=== PATIENT | female | born 1980 | race Caucasian/White ===

== ENCOUNTER 2017-06-01 09:04 | Outpatient (CLI) | payer OTHER ==
--- NOTE | 2017-06-01 12:53 | RAD ---
SMALL BOWEL FOLLOW-THROUGH: CLINICAL HISTORY: Abnormal transaminases. Nausea and vomiting. Reflux. History of endometriosis with prior bowel res ections reported by the patient. FINDINGS: Director Medical imaging reveals a nonobstructive bowel gas pattern. Real-time fluoroscopy performed of the sma ll bowel, which reveals appropriate caliber and mucosal pattern. There is transit of contrast through the small bowel and into the colon by 15 minutes. IMPRESSION: 1. Rapid transit of contrast through the small intestine. Correlate clinically. 2. Normal mucosal pattern and caliber of small bowel, as demonstrated fluoroscopically. POS: [facility]
== END 2017-06-01 09:05 | disposition home or self-care (01) ==
LOC: RAD 09:04
PROVIDERS: ATTEND Internal Medicine Gastroenterology
DX: K21.9 Gastro-esophageal reflux disease without esophagitis (principal); R74.0 Nonspecific elevation of levels of transaminase and lactic acid dehydrogenase [LDH]; R11.2 Nausea with vomiting, unspecified
CPT/HCPCS: 74250

== ENCOUNTER 2017-06-12 17:30 | Emergency (ER) | payer OTHER ==
[2017-06-12] MEDS ORDERED: Ondansetron ODT 4 MG TAB ONE (17:41)
[2017-06-12] MEDS ORDERED: Lorazepam 2 MG/ML VIAL ONE (17:47)
[2017-06-12 17:58] LABS: #Basophils 0.1 thou/uL (0.0-0.2); #Lymphocytes 3.1 thou/uL (1.20-3.40); #Monocytes 0.8 thou/uL (0.11-0.59); #Neutrophils 3.8 thou/uL (1.40-6.50); %Basophils 1.1 % (0.0-1.0); %Eosinophils 0.2 % (0.0-10.0); %Lymphocytes 39.3 % (21.0-51.0); %Monocytes 10.2 % (0.0-10.0); Hematocrit 44.7 % (36.0-47.0); Mean Platelet Volume 6.2 fL (7.4-10.4); Red Blood Cell (RBC) Count 5.22 mill/uL (4.20-5.40); White Blood Cell (WBC) Count 7.8 thou/uL (4.8-10.8)
[2017-06-12] MEDS ORDERED: diphenhydrAMINE 50 MG/ML VIAL ONE ×2 (18:05→20:16)
[2017-06-12] MEDS ORDERED: Promethazine HCl 25 MG/ML VIAL ONE ×2 (18:05→20:16)
[2017-06-12 18:25] LABS: ALT (SGPT) 33 U/L (8-55); AST (SGOT) 33 U/L (5-34); Alkaline Phosphatase 127 U/L (40-150); Anion Gap 22 mmol/L (10-20); BUN (Urea Nitrogen) 12 mg/dL (7.0-18.7); Bilirubin, Total 0.3 mg/dL (0.2-1.2); Calc. Creatinine Clearance 0 mL/min (70-130); Calcium 9.2 mg/dL (7.8-10.44); Carbon Dioxide 16 mmol/L (22-29); Chloride 102 mmol/L (98-107); Estimated GFR-MDRD 72; Globulin 3.9 g/dL (2.4-3.5); Protein, Total 8.5 g/dL (6.0-8.3)
[2017-06-12] MEDS ORDERED: Potassium Chloride 20 MEQ in Sodium Chloride 0.9% 250 ML 250 ML IVPB SCH (19:00)
--- NOTE | 2017-06-12 19:10 | CT ---
CT BRAIN WITHOUT CONTRAST: History: Headache. Comparison: None. FINDINGS: No acute territory infarct or hemorrhage. No midline shift or mass effect. Ventricular size and extra axial CSF spaces are normal. The paranasal sinuses and mastoids are clear. Calvarium is intact. IMPRESSION: No acute intracranial abnormality. POS: [facility]
[2017-06-12] MEDS ORDERED: Potassium Bicarbonate/Cit Ac 25 MEQ TAB ONE (19:21)
== END 2017-06-12 22:50 | disposition home or self-care (01) ==
LOC: ERS 17:30
DX: B34.9 Viral infection, unspecified (principal); R06.4 Hyperventilation; F41.9 Anxiety disorder, unspecified
CPT/HCPCS: 70450; 80053; 85025; 85652; 86140; 96361; 96365; 96366; 96375; 96376; J1200; J2060; J2550; J3480; J7050; Q0162

== ENCOUNTER 2018-01-16 15:29 | Inpatient (IN) | payer OTHER ==
[2018-01-16] MEDS ORDERED: Midazolam HCl 5 mg/ml Vial ONE (15:35)
[2018-01-16] MEDS ORDERED: Fentanyl 100 MCG/2 ML VIAL ONE (16:16)
[2018-01-16 16:20] LABS: Base Excess (BEa) -22.5 mEq/L (-2.0 to +3.0); CO2 Tension 48.8 mmHg (35.0-45.0); Hematocrit-ABG 51.6 % (36.0-47.0); Hemoglobin (Hb) 15.2 g/dL (12.0-16.0); O2 Tension (PaO2) 111.3 mmHg (80.0-100.0); pH, Arterial 6.93 (7.35-7.45)
[2018-01-16 16:21] LABS: Analyzer IN Cardio ER; Calcium, Ionized 2.5 mmol/L (1.12-1.30); Puncture Site LF
[2018-01-16] MEDS ORDERED: fentaNYL Citrate/PF 2,000 MCG in Sodium Chloride 0.9% 60 ML IV SCH ×2 (16:24→20:45)
[2018-01-16] MEDS ORDERED: Norepinephrine 8 MG/0.9% NS 250 ML ONE (16:28)
[2018-01-16 16:31] LABS: Hemoglobin 16.2 g/dL (12.0-16.0); Mean Corpuscular HGB CONC 32.7 g/dL (32.0-36.0); Mean Corpuscular Hemoglobin 28.2 pg (27.0-31.0); Mean Corpuscular Volume 86.4 fL (78.0-98.0); Mean Platelet Volume 6.8 fL (7.4-10.4); Platelet Count 411 thou/uL (130-400); RBC Distribution Width 13.1 % (11.5-14.5); Red Blood Cell (RBC) Count 5.74 mill/uL (4.20-5.40); White Blood Cell (WBC) Count 13.5 thou/uL (4.8-10.8)
[2018-01-16 16:43] LABS: Acetaminophen Less than 6.0 mcg/mL (10.0-30.0); Alcohol Less than 10 mg/dL (Less than 10); Salicylate Less than 8.0 mg/dL (15.0-30.0)
[2018-01-16 16:44] LABS: ALT (SGPT) 511 U/L (8-55); AST (SGOT) 587 U/L (5-34); Albumin 3.5 g/dL (3.5-5.0); Alkaline Phosphatase 246 U/L (40-150); BUN (Urea Nitrogen) 29 mg/dL (7.0-18.7); CK (CPK) 152 U/L (29-168); Calc. Creatinine Clearance 0 mL/min (70-130); Chloride 101 mmol/L (98-107); Estimated GFR-MDRD 27; Globulin 3.3 g/dL (2.4-3.5); Glucose 364 mg/dL (70-105); Lipase 170 U/L (8-78); Potassium 3.5 mmol/L (3.5-5.1); Protein, Total 6.8 g/dL (6.0-8.3); Sodium 140 mmol/L (136-145)
[2018-01-16 16:47] LABS: Band 15 % (5-11); Large Platelets SLIGHT; Lymphocytes 34 % (21-51); MDiff Complete? YES; Metamyelocyte 11 % (0-0); Monocytes 2 % (0-10); Myelocyte 4 % (0-0); Neutrophil 33 % (42-75); Nucleated RBC 2 % (0); PLT Morphology Comment Appears Increased; Polychromasia SLIGHT = 2-3 cells (100X) (0-2/hpf); Reactive Lymphocytes 1 % (0-10); Vacuoles SLIGHT
[2018-01-16 16:48] LABS: Carbon Dioxide Less than 8 mmol/L (22-29)
--- NOTE | 2018-01-16 17:01 | RAD ---
CHEST 1 VIEW: Date: 01/16/18 HISTORY: Cardiac arrest. COMPARISON: Chest radiograph from 2016. FINDINGS: Patient is intubated with endotracheal tube tip at the level of the clavicles. Enteric tube tip is in the gastric body. Low grade perihilar edema. Possible right-sided rib fractures. IMPRESSION: 1. Endotracheal tube tip at the level of the clavicles. 2. Enteric tube tip at the gastric body. 3. Mild perihilar edema. 4. Possible right-sided rib fractures. POS: [facility]
--- NOTE | 2018-01-16 17:41 | CT ---
CT BRAIN WITHOUT CONTRAST: Date: 01/16/18 HISTORY: Syncope. FINDINGS: Comparison made with exam of 06/12/17. No evidence of acute infarct, hemorrhage, midline shift, or abnormal extra-axial fluid collections ar e seen. The ventricular size is normal and the basilar cisterns are patent. The bony calvarium is int act. A tiny amount of fluid is seen in the maxillary and sphenoid sinuses. IMPRESSION: No CT evidence of acute intracranial process. POS: [facility]
[2018-01-16 18:08] LABS: pH, Arterial 6.97 (7.35-7.45)
[2018-01-16 18:09] LABS: CO2 Tension 53.9 mmHg (35.0-45.0); Hematocrit-ABG 45.3 % (36.0-47.0); O2 Tension (PaO2) 52.6 mmHg (80.0-100.0)
[2018-01-16 18:10] LABS: Hemoglobin (Hb) 14.7 g/dL (12.0-16.0)
[2018-01-16 18:11] LABS: Analyzer IN Cardio ER; Calcium, Ionized 1.2 mmol/L (1.12-1.30); Puncture Site RB
[2018-01-16 18:12] LABS: ALV-art Gradient 593.025 (0-20)
[2018-01-16] MEDS ORDERED: Vasopressin 40 UNIT, Admixture Fee 1 EACH in Sodium Chloride 0.9% 100 ML IV SCH (18:15)
[2018-01-16] MEDS ORDERED: Dexamethasone 10 MG/ML VIAL ONE (18:19)
[2018-01-16 18:37] LABS: Troponin I 0.157 ng/mL (< 0.028)
[2018-01-16 18:43] LABS: CKMB 7.5 ng/mL (0-6.6)
--- NOTE | 2018-01-16 18:48 | CT ---
CTA CHEST WITH IV CONTRAST AND 3D POSTPROCESSING CTA ABDOMEN AND PELVIS WITH IV CONTRAST AND 3D POSTPROCESSIN01/16/18 HISTORY: Syncope. FINDINGS: There is good contrast opacification of the thoracoabdominal aorta without aneurysmal dissection. The pulmonary artery vasculature is well opacified without filling defects to suggest pulmonary embolism . No pleural or pericardial effusions are seen. There are extensive areas of consolidation in the stephanie g ramirez bilaterally. There is a right sided moderate pneumothorax with multiple right rib fractures from the first through the sixth right ribs. No free air or free fluid is seen in the abdomen or pelvis. The liver, spleen, pancreas, adrenal glan ds and kidneys are unremarkable. There is a right groin catheter with tip in the intrahepatic IVC. En dotracheal and nasogastric tubes are present. There is good flow without significant stenosis in the renal arteries, celiac axis, SMA and PHILOMENA. Ther e is fluid in the loops of bowel. There is mild dilatation of some of the small bowel loops in the le ft upper quadrant. There is a Mann catheter in a nondistended urinary bladder. IMPRESSION: 1. Moderate right sided pneumothorax with multiple right rib fractures. 2. Extensive bilateral lung infiltrates. 3. Mildly dilated small bowel loops in the left upper quadrant. Discussed over the telephone with ER physician, Dr. Giovanni Linda at 5:41 p.m. POS: [facility]
[2018-01-16] MEDS ORDERED: Calcium Gluc 4.6 MEQ/10 ML (100 MG/ML) ONE (19:20)
[2018-01-16] MEDS ORDERED: Calcium Chloride 1 GM/10 ML Abboject SYRINGE ONE (19:27)
[2018-01-16 19:34] LABS: CO2 Tension 62.3 mmHg (35.0-45.0); pH, Arterial 6.79 (7.35-7.45)
[2018-01-16 19:35] LABS: Actual Bicarbonate (HCO3a) 9.2 mEq/L (22-28); Base Excess (BEa) -25.9 mEq/L (-2.0 to +3.0); Hemoglobin (Hb) 12.9 g/dL (12.0-16.0); O2 Tension (PaO2) 58.5 mmHg (80.0-100.0)
[2018-01-16 19:36] LABS: Analyzer IN Cardio ER; Calcium, Ionized 3.8 mmol/L (1.12-1.30); Puncture Site A LINE
[2018-01-16 19:37] LABS: ALV-art Gradient 576.625 (0-20)
[2018-01-16] MEDS ORDERED: Albumin 25% 25 GM/100 ML BOT IVPB ONE (19:45)
[2018-01-16] MEDS ORDERED: Ampicillin/Sulbactam 3 GM in Sodium Chloride 0.9% 100 ML IVPB SCH (20:30)
[2018-01-16] MEDS ORDERED: Norepinephrine 8 MG/250 ML BAG IVPB PRN (20:35)
--- NOTE | 2018-01-16 20:40 | RAD ---
PORTABLE CHEST ONE VIEW: 01/16/18 at 7:21 p.m. HISTORY: Respiratory failure. FINDINGS/IMPRESSION: Comparison is made with earlier exam of 3:26 p.m. from the same date. Endotracheal and nasogastric tubes remain in place. Extensive air space opacities have developed bila terally. Interval placement of bilateral chest tubes are seen. Multiple right sided rib fractures are again noted. There is subcutaneous emphysema in the right lateral chest wall. POS: [facility]
[2018-01-16] MEDS ORDERED: Dextrose 5% in Water 1,000 ML IV PRN (20:44)
[2018-01-16] MEDS ORDERED: Dextrose 50% Abboject 50 ML SYRINGE SLOW IVP PRN (20:44)
[2018-01-16] MEDS ORDERED: Norepinephrine 8 MG/0.9% NS 250 ML IVPB PRN (20:44)
[2018-01-16] MEDS ORDERED: Sodium Chloride 0.9% 1,000 ML IV SCH (20:44)
[2018-01-16] MEDS ORDERED: DISCONTINUE PREVIOUS NARCOTIC PAIN MEDICATIONS AND BENZODIAZEPINES FS SCH (20:45)
[2018-01-16] MEDS ORDERED: Lactated Ringer's 1,000 ML IV SCH (20:45)
[2018-01-16] MEDS ORDERED: Propofol BOLUS 1,000 MG/100 ML VIAL IV PRN (20:45)
[2018-01-16] MEDS ORDERED: Fentanyl BOLUS 250 ML IVPB PRN (20:45)
[2018-01-16] MEDS ORDERED: Propofol 1,000 MG/100 ML VIAL IV PRN (20:45)
[2018-01-16] MEDS ORDERED: Lorazepam 2 MG/ML VIAL SLOW IVP PRN (20:45)
[2018-01-16] MEDS ORDERED: Sodium Bicarb 50 MEQ/50 ML Abboject 8.4% SYRINGE ONE ×2 (20:50→20:52)
[2018-01-16] MEDS ORDERED: Sodium Bicarbonate 150 MEQ in Dextrose 5% in Water 1,000 ML IV SCH (21:00)
[2018-01-16] MEDS ORDERED: Famotidine/PF 20 mg/2ml Vial SLOW IVP SCH (21:00)
[2018-01-16] MEDS ORDERED: Dextrose 50% Abboject 50 ML SYRINGE ONE (21:14)
[2018-01-16 21:17] LABS: CO2 Tension 50.4 mmHg (35.0-45.0); O2 Tension (PaO2) 45.1 mmHg (80.0-100.0); pH, Arterial 6.99 (7.35-7.45)
[2018-01-16 21:18] LABS: Hemoglobin (Hb) 11.9 g/dL (12.0-16.0)
[2018-01-16 21:19] LABS: Calcium, Ionized 1.2 mmol/L (1.12-1.30); Puncture Site LINE
[2018-01-16 21:25] VITALS: BMI 29.9
[2018-01-16 21:36] VITALS: TEMP 97.7
[2018-01-16 22:30] LABS: Actual Bicarbonate (HCO3a) 13.6 mEq/L (22-28); CO2 Tension 56.4 mmHg (35.0-45.0); O2 Tension (PaO2) 47.7 mmHg (80.0-100.0)
[2018-01-16 22:31] LABS: Base Excess (BEa) -17.5 mEq/L (-2.0 to +3.0); Hemoglobin (Hb) 11.3 g/dL (12.0-16.0)
[2018-01-16 22:32] LABS: Calcium, Ionized 1.1 mmol/L (1.12-1.30); Puncture Site A LINE
[2018-01-16] MEDS ORDERED: Piperacillin/Tazobactam 3.375 GM in Sodium Chloride 0.9% 100 ML IVPB SCH (23:59)
--- NOTE | 2018-01-17 00:20 | OP ---
PREOPERATIVE DIAGNOSIS: Pneumothorax initiated by cardiopulmonary resuscitation and severe hypoxia. POSTOPERATIVE DIAGNOSIS: Pneumothorax initiated by cardiopulmonary resuscitation and severe hypoxia. PROCEDURE: Bilateral tube thoracostomies. SURGEON: Tim Alexander M.D. ANESTHESIA: None. PROCEDURE IN DETAIL: After prepping and draping the chest, the patient went into asystole and chest compressions were done while an incision was made in the right anterior chest. Clamp entered the madonna st with some air exiting and a 24-hour tube was then advanced and connected to suction while CPR was continued. Following this, a similar procedure was performed on the left anterior chest wall, althou gh no air exited upon entering. This tube was secured to the chest and connected to Pleur-evac. It should be noted that the patient had been down at home, received CPR, probably punctured her right estrada ng as evidenced by CT showing a small pneumothorax. Due to positive pressure ventilation, I was aske d to place a chest tube on the right. In the interim, she became more difficult to ventilate and a d art was placed by the ER physician in the left anterior chest wall, necessitating a chest tube over t here as well. FINDINGS: The patient's CT scan showed, bilateral, what appeared to be aspiration pneumonitis with a solid-appearing right lower lobe. There was a small pneumothorax noted on the right from CPR and no films had been done after placement of the left-sided dart.
--- NOTE | 2018-01-17 01:07 | OP ---
DATE OF PROCEDURE: 01/16/2018 PROCEDURE: Left femoral arterial line placement. PREOPERATIVE DIAGNOSIS: Profound shock. POSTOPERATIVE DIAGNOSIS: Profound shock. ANESTHESIA: None. DESCRIPTION OF PROCEDURE: Using aseptic technique, the left femoral area was cleansed with chlorhexi dine and draped sterilely. A 5-Greenlandic arterial line was placed in the left femoral artery without di fficulty. The line was sutured in position and placed on a transducer. The patient tolerated the pr ocedure well.
--- NOTE | 2018-01-17 02:10 | CON ---
DATE OF CONSULTATION: 01/16/2018 CONSULTING PHYSICIAN: Dr. Vin Smith. REASON FOR CONSULTATION: Respiratory failure, status post prolonged cardiopulmonary arrest and susta ined hypertension. The following encompassed 120 minutes of continuous critical care time and is not inclusive of 10 min utes spent putting in a left femoral arterial line. HISTORY OF PRESENT ILLNESS: This is a 37-year-old female who has apparently seen my partner, Dr. Stacey washington, in the past. She was found at home, having diarrhea and emesis today. I am told she has been sic k for several days, but it is not clear to the extent of what else has been going on. The patient nely hinton arrived to the emergency room approximately 3:00 p.m. and basically underwent a continuous resuscit ation. I was called about 6:00 p.m. to see the patient and arrived to the ER approximately 6:20. Wh en I arrived, the patient had full CPR measures in place including bag ET tube ventilation and closed chest CPR. Dr. Alexander was finished in putting in bilateral chest tubes. The patient had a known rig ht pneumothorax from previous CPR in the ER, and also had a left PneumoDart that was in place that wa s removed. Dr. Alexander went ahead and put in a larger bore chest tube anteriorly. The patient continu es to undergo this degree of CPR for approximately 30 minutes, this is being run by Dr. Linda. I came back into the room and we were about to stop based on the fact that her end-tidal CO2 had been so lo w for over 30 minutes and there have been no detectable pulses. Dr. Linda put an echocardiogram heart still beating. I then proceeded to put a left femoral arterial line in and obtain a blood pre ssure of about 50/25. At that point, we check an ABG, found to be extremely acidotic. I gave the pa emir some calcium and bicarbonate and her pressure started to come up. The ABG demonstrated a pH of 6.76 with a pCO2 in the 60s and a pO2 of 58 and that was on 100% oxygen on assist control with a rat e of 27. Decided to go ahead and be more vigorous in terms of fluid resuscitation, she was given some albumin. I also gave her more bicarbonate and her blood pressure slowly began to rise. At the time of this dictation, she is being transported from the ER to the CCU. PAST MEDICAL HISTORY: Endometriosis. She has also been seeing Dr. Dave in 2016 for workup of shortn ess of breath and there was a mention of pulmonary fibrosis, but I would have to review the chart in the clinic to see where that workup stands. PAST SURGICAL HISTORY: 1. Cholecystectomy. 2. Hysterectomy. 3. Tonsillectomy. PSYCHIATRIC HISTORY: Unremarkable. SOCIAL HISTORY: No illicit drug use. No smoking history. I am not sure of alcohol intake. ALLERGIES: Unknown per previous admissions. REVIEW OF SYSTEMS: Cannot be obtained as the patient is on mechanical ventilation. PHYSICAL EXAMINATION: VITAL SIGNS: Pulse is running between 85 and 95, systolic blood pressure running between 50 and 140 depending on when she last received bicarbonate and calcium, diastolic pressure generally running bet ween 25 and 40. NEUROLOGIC: She would move her neck some with breathing, but I could not get her 8 mm pupils to reac t to light and she did not have doll's eye reflex. She does not move her extremities spontaneously a nd did not withdraw to pain. HEENT: Otherwise, unremarkable except for dusky-colored skin. NECK: No JVD. LUNGS: She has coarse breath sounds anteriorly. CARDIOVASCULAR: S1, S2 regular. ABDOMEN: Soft, without obvious hepatosplenomegaly. EXTREMITIES: Severely cyanotic without edema. LABORATORY AND X-RAY FINDINGS: White blood cell count 13.5, hemoglobin 16.2, hematocrit 49.6, platel et count 411,000 with 33% neutrophils, 15% bands, 34% lymphocytes, and 11% metamyelocytes, 4% myelocy rosibel. Last ABG, pH 6.79, pCO2 of 60, pO2 of 58. Sodium 140, potassium 3.5, chloride 101, CO2 less th an 8, BUN 29, creatinine 2.1, glucose 364, AST 587, ALT 511. Troponin 0.157. CT of the brain demons trated no acute intracranial process. CT of the abdomen and pelvis demonstrated a moderate right-rocío ed pneumothorax, multiple right-sided rib fractures and extensive bilateral infiltrates, which were a lso confirmed on the chest CT. She also had multiple dilated small bowel loops in the left upper lauro drant of the chest. Chest x-ray, post-chest tube placement, showed 2 anterior chest tubes in good po sition. She has diffuse bilateral infiltrates. ASSESSMENT: 1. Shock, which I believe it is a combination of septic shock and hypovolemic shock. 2. Acute hypoxic respiratory failure, requiring mechanical ventilation. 3. Probable aspiration pneumonitis from vomiting. 4. Severe metabolic acidosis. 5. Hyperglycemia. 6. Acute renal failure. 7. Acute hepatic insufficiency, which is probably secondary to shock liver. 8. History of endometriosis. 9. Mildly elevated troponin, which is probably secondary to the shock. 10. Mildly elevated lipase. RECOMMENDATIONS: 1. More aggressive hemodynamic monitoring. I put an arterial line in the left femoral area via the modified Seldinger technique on the first stick without difficulty. This was done under aseptic tech nique, the line was then hooked to a pressure transducer. 2. Volume resuscitation with albumin and normal saline. 3. Mechanical ventilation. I will attempt to increase her PEEP as long as her blood pressure can to lerate it. 4. Frequent blood gases, checking her pH and supplementing bicarbonate as needed. Her pressure is d efinitely responsive to bicarbonate infusion. 5. Empiric antibiotic therapy. 6. Empiric IV corticosteroids. 7. Dr. Vin Smith and I had an extensive discussion with the family, discussing prognosis, which I believe is very guarded at this point. At this point, the patient remains FULL CODE.
--- NOTE | 2018-01-17 02:11 | HP ---
DATE OF ADMISSION: 01/16/2018 HISTORY OF PRESENT ILLNESS: Patient is a 37-year-old female who [facility] that had already been obtained. The patient had recovered from CPR. History is the patient has not been feeling well for approximately 2 days prior to coming to the hospital. Family notes she has had some diarrhea, probably some vomiting. Family noted, over the last 2 days, she has not been feeling well. They did check on her and found her to be in a very weakened condition. EMS was eventually called. The patient was supposedly unconscious and unresponsive. She received CPR t here by EMS and was brought into the hospital. By history, there has been 2 other episodes of CPR pe rformed. While in the emergency room, patient was intubated, placed on multiple vasopressor drips du ring this time. It was discovered, based on CT scan of the chest, the patient did have a pneumothora x as well as consider aspiration pneumonia. Brain CT was normal. Abdomen and pelvis CT was, otherwi se, unremarkable except for the above-noted pulmonary findings. The patient underwent a third round of CPR that was witnessed by me while in the emergency room. She also had bilateral chest tubes plac ed by Dr. Alexander. Dr. Mcpherson was consulted. He placed an arterial line. Patient was found to be on drips of Levophed, vasopressin, epinephrine. It had helped her blood pressure somewhat. The patient never was conscious to my exam. She did blink her eyes early upon my evaluation. I coul d not tell whether this was just an eye blink and response to me or whether it was a neurological twi tch otherwise. After multiple episodes of CPR, the patient has now been found to be less responsive. There was extremely acidotic pH on arterial blood gases. No other history could be obtained obviously from the patient. FAMILY HISTORY: History is related from the family notes. The patient has had a history of multiple GI surgeries due to endometriosis. There is also a reported history of some alcohol use. The patie nt apparently did have some alcohol use a few days prior to admission, uncertain of the amount and ty pes of alcohol. Otherwise, no other medical complaints are noted. REVIEW OF SYSTEMS: Could not be obtained. ALLERGIES: Could not be obtained from the patient herself and from the family as well. CURRENT MEDICATIONS: Could not be obtained. SOCIAL AND PERSONAL HISTORY: She is employed at [employer]. Her mother is a nurse at [employer]. PHYSICAL EXAMINATION: GENERAL: The patient is intubated. She has had multiple CPR performed. She has intubation. Bilate ral chest tubes placed. Arterial line, femoral line placed. She is nonresponsive. LUNGS: Reveal breath sounds bilaterally diminished. HEART: Does reveal a faint regular rate and rhythm. tachycardia. No murmurs. ABDOMEN: Appears to be soft without bulging. EXTREMITIES: No edema, no cyanosis otherwise noted. LABORATORY DATA: Her initial hemoglobin is 16.2, hematocrit 49.6, white blood count 13.5 with 33 lym phs, 15 bands, 34 lymphocytes. Her latest arterial blood gas shows a pCO2 of 62, pO2 of 58 with an a rterial pH of 6.79. Initial chemistry shows a sodium of 140, potassium 3.5, chloride 101, CO2 less t monae 8, creatinine of 2.07, elevated AST, elevated ALT elevated alkaline phosphatase. Toxicology scre en, plasma alcohol is normal. Acetaminophen and salicylate levels, otherwise normal. IMPRESSION: This is a 37-year-old female, who came in with cardiac arrest. She has had multiple CPR was done. The patient is seriously medically ill and in highly critical condition. I have discusse d in detail with the family the prognosis of the patient. I am concerned that she may have multiple CPRs again, but episode of CPR, I have discussed with the family the possibility to not perform CPR. They have taken this under advisement. We have consulted Pulmonary. Dr. Mcpherson has graduall y been by to see her and has written, see orders. Dr. Eugene will take over her care in a.m.
[2018-01-17] MEDS ORDERED: Lidocaine 2 gm/D5W 500ML PREMIX BAG ONE (13:43)
[2018-01-17] MEDS ORDERED: Sodium Bicarb 50 MEQ/50 ML Abboject 8.4% SYRINGE ONE ×2 (13:43)
[2018-01-17] MEDS ORDERED: Calcium Chloride 1 GM/10 ML Abboject SYRINGE ONE (13:43)
[2018-01-17] MEDS ORDERED: EPINEPHrine 1 MG/10 ML Abboject SYRINGE ONE (13:43)
== END 2018-01-16 22:50 | disposition expired | DRG 871 ==
LOC: ERS 15:29 → CCU 20:38
PROVIDERS: ADMIT Family Medicine; ATTEND Family Medicine
PROC: 0W9B00Z Drainage of Left Pleural Cavity with Drainage Device, Open Approach (ICD-10-PCS; principal; 2018-01-16)
PROC: 0W9900Z Drainage of Right Pleural Cavity with Drainage Device, Open Approach (ICD-10-PCS; 2018-01-16)
PROC: 5A1935Z Respiratory Ventilation, Less than 24 Consecutive Hours (ICD-10-PCS; 2018-01-16)
PROC: 04HY32Z Insertion of Monitoring Device into Lower Artery, Percutaneous Approach (ICD-10-PCS; 2018-01-16)
PROC: 5A12012 Performance of Cardiac Output, Single, Manual (ICD-10-PCS; 2018-01-16)
DX: A41.9 Sepsis, unspecified organism (principal); J69.0 Pneumonitis due to inhalation of food and vomit; R65.21 Severe sepsis with septic shock; J96.01 Acute respiratory failure with hypoxia; K72.00 Acute and subacute hepatic failure without coma; J93.83 Other pneumothorax; E87.2 Acidosis; N17.9 Acute kidney failure, unspecified; I46.9 Cardiac arrest, cause unspecified; I10 Essential (primary) hypertension; R57.1 Hypovolemic shock; R73.9 Hyperglycemia, unspecified
CPT/HCPCS: 36416; 36556; 51702; 70450; 71045; 71275; 74174; 80053; 80307; 82550; 82553; 82805; 83690; 84484; 85025; 92950; 93005; 94002; 94760; 96361; 96365; 96366; 96368; 96375; 96376; 99292; J0171; J0295; J1100; J2250; J3010; J7050; J7070; P9047; S0028